=== PATIENT | female | born 1940 | race Caucasian/White ===

== ENCOUNTER 2020-07-18 12:47 | Emergency (ER) | payer OTHER ==
[~2020-07-18] VITALS: Ht 170.2 cm; Wt 68.5 kg
[2020-07-18 13:01] VITALS: BP 134/84
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
[2020-07-18 14:20] VITALS: BP 134/84
--- NOTE | 2020-07-18 14:21 | NUR ---
Note [email or web address] in EDM - 07/18/20 at 1421 by [email or web address] Patient discharged with v/s stable. Written and verbal after care instructions given and explained. Patient alert, oriented and verbalized understanding of instructions. Ambulatory with steady gait. All questions addressed prior to discharge. ID band removed. Patient advised to follow up with PMD. Rx of KETOTIFEN given. Patient educated on indication of medication including possible reaction and side effects. Opportunity to ask questions provided and answered.
== END 2020-07-18 14:21 | disposition home or self-care (01) ==
LOC: MED 12:47
DX: S01.512A Laceration without foreign body of oral cavity, initial encounter (principal); S63.501A Unspecified sprain of right wrist, initial encounter; S50.311A Abrasion of right elbow, initial encounter; I10 Essential (primary) hypertension; Z96.651 Presence of right artificial knee joint; Z85.9 Personal history of malignant neoplasm, unspecified; W50.0XXA Accidental hit or strike by another person, initial encounter; Y93.89 Activity, other specified; Y92.89 Other specified places as the place of occurrence of the external cause; Y99.8 Other external cause status
CPT/HCPCS: 29125; 73110; 99283; Q0092